=== PATIENT | female | born 1955 | race Caucasian/White ===

== ENCOUNTER 2018-08-01 09:46 | Emergency (ER) | payer OTHER ==
[~2018-08-01] VITALS: Ht 167.6 cm; Wt 87.5 kg
[2018-08-01 10:14] VITALS: BP 133/64
[2018-08-01] MEDS ORDERED: LEVO25TA4 PO (10:59)
[2018-08-01] MEDS ORDERED: LISI2.5T PO (11:00)
[2018-08-01] MEDS ORDERED: ATOR-2 PO (11:00)
== END 2018-08-01 11:26 | disposition home or self-care (01) ==
LOC: ED 10:50
DX: S49.91XA Unspecified injury of right shoulder and upper arm, initial encounter (principal); F17.200 Nicotine dependence, unspecified, uncomplicated; V49.59XA Passenger injured in collision with other motor vehicles in traffic accident, initial encounter; Y93.89 Activity, other specified; Y92.410 Unspecified street and highway as the place of occurrence of the external cause; Y99.8 Other external cause status
CPT/HCPCS: 29105; 99283

== ENCOUNTER 2018-09-07 06:30 | Day surgery (SDC) | payer OTHER ==
[~2018-09-07] VITALS: Ht 165.1 cm; Wt 83.0 kg
[~2018-09-07 06:30] MED LIST: ATOR-2 PO; LEVO25TA4 PO; LISI2.5T PO
[2018-09-07 06:58] VITALS: BP 166/98
[2018-09-07] MEDS ORDERED: LACTATED RINGERS 1,000 ML IV SCH (07:01)
[2018-09-07] MEDS ORDERED: ACETAMINOPHEN 500 MG TABLET PO ONE (07:30)
[2018-09-07] MEDS ORDERED: ONDANSETRON ODT 8 MG PO ONE (07:30)
[2018-09-07] MEDS ORDERED: GABAPENTIN 300 MG CAPSULE PO ONE (07:30)
[2018-09-07] MEDS ORDERED: MIDAZOLAM 1 MG/ML, 2ML ONE (07:31)
[2018-09-07] MEDS ORDERED: FENTANYL PF 100 MCG/2ML ONE (07:31)
[2018-09-07] MEDS ORDERED: ATOR40TA78 PO (07:41)
[2018-09-07] MEDS ORDERED: LEVO137T3 PO (07:41)
[2018-09-07] MEDS ORDERED: LISI1TAB3 PO (07:41)
[2018-09-07] MEDS ORDERED: NAPR500T8 PO (07:41)
[2018-09-07 08:07] LABS: ANION GAP 9 mmol/L (5-15); CHLORIDE 105 mmol/L (98-107)
[2018-09-07 08:10] LABS: ALANINE AMINOTRANSFERASE 41 U/L (12-78); ALKALINE PHOSPHATASE 128 U/L (45-117); BILIRUBIN,TOTAL 0.5 mg/dL (0.2-1.0); CREATININE 0.72 mg/dL (0.55-1.02); TOTAL PROTEIN 7.8 g/dL (6.4-8.2)
[2018-09-07] MEDS ORDERED: SUCCINYLCHOLINE 20 MG/ML, 10ML ONE (08:30)
[2018-09-07] MEDS ORDERED: PHENYLEPHRINE 10 MG/ML ONE (08:30)
[2018-09-07] MEDS ORDERED: GLYCOPYRROLATE 0.2MG/1ML, 5ML ONE (08:30)
[2018-09-07] MEDS ORDERED: ROCURONIUM 10 MG/ML,10ML ONE (08:30)
[2018-09-07] MEDS ORDERED: CEFAZOLIN 1,000 MG ONE (09:57)
[2018-09-07] MEDS ORDERED: BUPIVACAINE/PF 0.25% ONE (09:57)
[2018-09-07] MEDS ORDERED: LIDOCAINE-MPF 2% ,5ML ONE ×2 (09:57)
[2018-09-07] MEDS ORDERED: DEXAMETHASONE 4 MG/ML, 1ML ONE (09:57)
[2018-09-07] MEDS ORDERED: PROPOFOL 10 MG/ML, 20ML ONE (09:57)
[2018-09-07] MEDS ORDERED: ONDANSETRON 2MG/ML, 2ML IV PRN (10:30)
[2018-09-07] MEDS ORDERED: FENTANYL PF 100 MCG/2ML IV PRN (10:30)
[2018-09-07] MEDS ORDERED: SCOPOLAMINE PATCH, 1.5MG PATCH.TD72 TD PRN (10:30)
[2018-09-07] MEDS ORDERED: OXYcodone 5 MG/5 ML ORAL.SOL UDC PO PRN (10:30)
[2018-09-07] MEDS ORDERED: HYDROmorphone 2 MG/ML, 1ML IVPush PRN (10:30)
[2018-09-07] MEDS ORDERED: ALBUTEROL/IPRATROPIUM 2.5MG/0.5MG, 3 ML NPPB PRN (10:30)
[2018-09-07] MEDS ORDERED: PROMETHAZINE 25 MG/ML, 1ML IV PRN (10:30)
[2018-09-07] MEDS ORDERED: MIDAZOLAM 1 MG/ML, 2ML IV PRN (10:30)
[2018-09-07] MEDS ORDERED: hydrALAzine 20 MG/ML, 1ML IV PRN (10:30)
[2018-09-07] MEDS ORDERED: MEPERIDINE/PF 25MG/0.5ML IVPush PRN (10:30)
== END 2018-09-07 16:10 | disposition home or self-care (01) ==
LOC: OUT 06:30
PROVIDERS: ATTEND Orthopaedic Surgery
DX: S42.351A Displaced comminuted fracture of shaft of humerus, right arm, initial encounter for closed fracture (principal); I10 Essential (primary) hypertension; E78.5 Hyperlipidemia, unspecified; W18.39XA Other fall on same level, initial encounter; Y93.89 Activity, other specified; Y92.89 Other specified places as the place of occurrence of the external cause; Y99.8 Other external cause status; Z88.0 Allergy status to penicillin; Z88.8 Allergy status to other drugs, medicaments and biological substances
CPT/HCPCS: 24515; 36415; 64415; 73060; 76000; 80053; 93005; C1713; J0330; J0690; J1100; J2250; J2370; J2704; J3010; J3490; J7120; Q0162

== ENCOUNTER 2021-03-20 15:17 | Inpatient (IN) | payer MEDICARE, OTHER ==
[~2021-03-20] VITALS: Ht 167.6 cm; Wt 91.6 kg
[~2021-03-20 15:17] MED LIST changes: +ATOR40TA78 PO; +LEVO137T3 PO; +LISI1TAB23 PO; +NAPR500T8 PO
[2021-03-20] MEDS ORDERED: MORPHINE SULFATE 4 MG/ML, 1ML IVPush PRN (15:30)
[2021-03-20] MEDS ORDERED: PLEASE ENTER HEIGHT AND WEIGHT MC SCH (15:30)
[2021-03-20] MEDS ORDERED: ONDANSETRON 2MG/ML, 2ML IVPush ONE (15:30)
[2021-03-20] MEDS ORDERED: MORPHINE SULFATE 4 MG/ML, 1ML ONE (17:18)
[2021-03-20] MEDS ORDERED: ONDANSETRON 2MG/ML, 2ML ONE (17:18)
[2021-03-20] MEDS ORDERED: PROPOFOL 10 MG/ML, 20ML IVPush ONE (18:00)
[2021-03-20] MEDS ORDERED: PROPOFOL 10 MG/ML, 20ML ONE (18:00)
--- NOTE | 2021-03-20 18:04 | NUR ---
Set up for procedural sedation, end tidal, monitor, resuc equipment and suction ready at bedside. Propofol pulled 400mg, for ERP admin. Splint cart to room.
--- NOTE | 2021-03-20 18:17 | NUR ---
SEE PAPER CHART FOR CONSCIOUS SEDATION CHARTING
--- NOTE | 2021-03-20 18:25 | NUR ---
PROCEDURE COMPLETE AT 8204
--- NOTE | 2021-03-20 18:40 | NUR ---
80mg propofol wasted with YAMILEX fernández. x1 unopened bottle of propofol returne
--- NOTE | 2021-03-20 18:59 | NUR ---
RECIEVED REPORT FROM YAMILEX LEE
[2021-03-20] MEDS ORDERED: hydrALAzine 20 MG/ML, 1ML IVPush PRN (19:00)
[2021-03-20] MEDS ORDERED: LABETALOL 5MG/ML, 20ML IVPush PRN (19:00)
[2021-03-20] MEDS ORDERED: morphine SULFATE 10 MG/ML, 1ML IVPush PRN (19:00)
--- NOTE | 2021-03-20 19:18 | NUR ---
REPORT GIVEN TO BILL KAMINSKI. SUSAN READY TO GO TO ROOM 443.
[2021-03-20] MEDS: KETOROLAC 30 MG/1 ML IV PRN (20:10)
[2021-03-20] MEDS: ATORVASTATIN 40 MG TABLET PO SCH (20:10)
[2021-03-20] MEDS: ACETAMINOPHEN 500 MG TABLET PO SCH (20:10)
[2021-03-20 20:36] VITALS: BP 155/85
[2021-03-20] MEDS: LACTATED RINGERS 1,000 ML IV SCH (22:01)
[2021-03-21 01:34] VITALS: BP 138/65
[2021-03-21] MEDS: KETOROLAC 30 MG/1 ML IV PRN ×2 (01:40→10:32)
[2021-03-21] MEDS: LACTATED RINGERS 1,000 ML IV SCH ×2 (03:00→18:09)
[2021-03-21 05:20] LABS: BASOPHILS % (AUTO) 1 % (0-1); EOSINOPHILS % (AUTO) 2 % (1-7); LYMPHOCYTES % (AUTO) 21 % (22-44); MEAN CORPUSCULAR HEMOGLOBIN 29.6 pg (27.0-34.8); MEAN CORPUSCULAR HGB CONC 34.4 g/dL (32.4-35.8); MEAN PLATELET VOLUME 8.3 fL (7.4-10.4); MONOCYTES % (AUTO) 7 % (2-9); NEUTROPHILS % (AUTO) 68 % (42-75); PLATELET COUNT 215 x10^3/uL (130-400); RED BLOOD COUNT 5.15 x10^6/uL (3.82-5.3); RED CELL DISTRIBUTION WIDTH 13.4 % (9.6-15.2)
[2021-03-21 05:26] LABS: ANION GAP 5 mmol/L (5-15); CALCIUM 7.4 mg/dL (8.5-10.1); CHLORIDE 103 mmol/L (98-107); CREATININE 0.62 mg/dL (0.55-1.02)
[2021-03-21] MEDS: LEVOTHYROXINE 137 MCG TABLET PO SCH (06:02)
[2021-03-21 06:55] VITALS: BP 142/72
[2021-03-21] MEDS: ACETAMINOPHEN 500 MG TABLET PO SCH ×3 (06:58→20:21)
[2021-03-21] MEDS: NICOTINE 7 MG/24 HR PATCH.TD24 TD SCH (09:11)
[2021-03-21] MEDS ORDERED: EPINEPHRINE 1 MG/ML, 1ML ONE (10:49)
[2021-03-21] MEDS ORDERED: BUPIVACAINE/PF 0.5% ONE (10:49)
[2021-03-21] MEDS ORDERED: MIDAZOLAM 1 MG/ML, 2ML ONE (10:51)
[2021-03-21] MEDS ORDERED: PROPOFOL 50 ML ONE ×2 (10:51→12:34)
[2021-03-21] MEDS ORDERED: FENTANYL PF 250 MCG/5ML ONE (10:51)
[2021-03-21] MEDS ORDERED: LABETALOL 5MG/ML, 20ML IV PRN (12:00)
[2021-03-21] MEDS ORDERED: morphine SULFATE 10 MG/ML, 1ML IVPush PRN (12:00)
[2021-03-21] MEDS ORDERED: FENTANYL PF 100 MCG/2ML IV PRN (12:00)
[2021-03-21] MEDS ORDERED: MEPERIDINE/PF 25MG/0.5ML IVPush PRN (12:00)
[2021-03-21] MEDS ORDERED: ONDANSETRON 2MG/ML, 2ML IVPush PRN (12:00)
[2021-03-21] MEDS ORDERED: DIPHENHYDRAMINE 50 MG/ML, 1ML IVPush PRN (12:00)
[2021-03-21] MEDS ORDERED: PROMETHAZINE 25 MG/ML, 1ML IVPush PRN (12:00)
[2021-03-21] MEDS ORDERED: OXYcodone 5 MG/5 ML ORAL.SOL UDC PO PRN (12:00)
[2021-03-21] MEDS ORDERED: DIAZEPAM 5 MG/ML, 2ML IVPush PRN (12:00)
[2021-03-21] MEDS ORDERED: ACETAMINOPHEN 325 MG TABLET PO PRN (12:00)
[2021-03-21] MEDS ORDERED: EPHEDRINE 50 MG/ML, 1ML IVPush PRN (12:00)
[2021-03-21] MEDS ORDERED: EPHEDRINE 50 MG/ML, 1ML IM PRN (12:00)
[2021-03-21] MEDS ORDERED: BUPIVACAINE/PF-EPI 0.5% 1:200K IM ONE (12:28)
[2021-03-21] MEDS ORDERED: SUCCINYLCHOLINE 20 MG/ML, 10ML ONE (12:34)
[2021-03-21] MEDS ORDERED: DEXAMETHASONE 4 MG/ML, 1ML ONE (12:34)
[2021-03-21] MEDS ORDERED: ONDANSETRON 2MG/ML, 2ML ONE (12:34)
[2021-03-21] MEDS ORDERED: ACETAMINOPHEN 650 MG/20.3 ML UDC ONE (13:42)
[2021-03-21] MEDS ORDERED: FENTANYL PF 100 MCG/2ML ONE (13:42)
[2021-03-21] MEDS ORDERED: OXYcodone 5 MG/5 ML ORAL.SOL UDC ONE (13:42)
[2021-03-21] MEDS ORDERED: MEPERIDINE/PF 25MG/ML,1ML ONE (14:17)
[2021-03-21] MEDS ORDERED: CEFAZOLIN PMX 2GM/50ML 50 ML IVPB SCH (14:30)
[2021-03-21 15:00] VITALS: BP 149/71
[2021-03-21 15:47] VITALS: BP 149/71
[2021-03-21 19:42] VITALS: BP 149/76
[2021-03-21] MEDS: ATORVASTATIN 40 MG TABLET PO SCH (20:21)
[2021-03-22 00:47] VITALS: BP 157/73
[2021-03-22] MEDS: KETOROLAC 30 MG/1 ML IV PRN (01:07)
[2021-03-22] MEDS: LACTATED RINGERS 1,000 ML IV SCH (02:21)
[2021-03-22 04:14] VITALS: BP 148/78
[2021-03-22] MEDS: LEVOTHYROXINE 137 MCG TABLET PO SCH (05:27)
[2021-03-22 05:50] LABS: BASOPHILS % (AUTO) 0 % (0-1); EOSINOPHILS % (AUTO) 0 % (1-7); LYMPHOCYTES % (AUTO) 11 % (22-44); MEAN CORPUSCULAR HEMOGLOBIN 29.3 pg (27.0-34.8); MEAN CORPUSCULAR HGB CONC 33.7 g/dL (32.4-35.8); MEAN PLATELET VOLUME 8.5 fL (7.4-10.4); MONOCYTES % (AUTO) 8 % (2-9); NEUTROPHILS % (AUTO) 81 % (42-75); PLATELET COUNT 204 x10^3/uL (130-400); RED BLOOD COUNT 4.73 x10^6/uL (3.82-5.3); RED CELL DISTRIBUTION WIDTH 13.1 % (9.6-15.2)
[2021-03-22 05:53] LABS: ANION GAP 6 mmol/L (5-15); CALCIUM 7.5 mg/dL (8.5-10.1); CHLORIDE 104 mmol/L (98-107); CREATININE 0.63 mg/dL (0.55-1.02)
[2021-03-22 08:00] VITALS: BP 169/75
[2021-03-22] MEDS: ASPIRIN 81 MG TABLET EC PO SCH (09:30)
[2021-03-22] MEDS ORDERED: KETOROLAC 15 MG/1ML IM PRN (09:30)
[2021-03-22] MEDS: LISINOPRIL 10 MG TABLET PO SCH (09:43)
[2021-03-22] MEDS: DOCUSATE 100 MG CAPSULE PO SCH ×2 (09:43→20:19)
[2021-03-22] MEDS: HYDROCHLOROTHIAZIDE 12.5 MG CAPSULE PO SCH (09:43)
[2021-03-22] MEDS: NICOTINE 7 MG/24 HR PATCH.TD24 TD SCH (09:43)
[2021-03-22] MEDS: POLYETHYLENE GLYCOL 17 GM PACKET PO SCH (09:43)
[2021-03-22] MEDS ORDERED: OXYcodone/APAP 5/325MG TABLET ONE (10:21)
[2021-03-22] MEDS: OXYcodone/APAP 5/325MG TABLET PO PRN ×2 (10:23→16:39)
[2021-03-22] MEDS ORDERED: KETOROLAC 30 MG/1 ML IM PRN (11:30)
[2021-03-22 14:08] VITALS: BP 158/80
[2021-03-22] MEDS ORDERED: VANCOMYCIN PMX 1GM/200ML 200 ML IV ONE (19:00)
[2021-03-22] MEDS: ATORVASTATIN 40 MG TABLET PO SCH (20:19)
[2021-03-22 20:26] VITALS: BP 145/68
[2021-03-22] MEDS ORDERED: GABAPENTIN 300 MG CAPSULE PO SCH (21:00)
[2021-03-23 00:55] VITALS: BP 156/78
[2021-03-23 05:20] LABS: BASOPHILS % (AUTO) 1 % (0-1); EOSINOPHILS % (AUTO) 2 % (1-7); LYMPHOCYTES % (AUTO) 27 % (22-44); MEAN CORPUSCULAR HEMOGLOBIN 29.7 pg (27.0-34.8); MEAN CORPUSCULAR HGB CONC 34.5 g/dL (32.4-35.8); MONOCYTES % (AUTO) 9 % (2-9); NEUTROPHILS % (AUTO) 62 % (42-75); PLATELET COUNT 221 x10^3/uL (130-400); RED CELL DISTRIBUTION WIDTH 13.1 % (9.6-15.2)
[2021-03-23 05:31] LABS: CALCIUM 7.3 mg/dL (8.5-10.1); CHLORIDE 105 mmol/L (98-107); CREATININE 0.59 mg/dL (0.55-1.02)
[2021-03-23] MEDS: LEVOTHYROXINE 137 MCG TABLET PO SCH (05:46)
[2021-03-23] MEDS: ASPIRIN 81 MG TABLET EC PO SCH (05:47)
[2021-03-23 05:48] LABS: ANION GAP 4 mmol/L (5-15)
[2021-03-23 07:35] VITALS: BP 165/77
[2021-03-23] MEDS: DOCUSATE 100 MG CAPSULE PO SCH (08:25)
[2021-03-23] MEDS: HYDROCHLOROTHIAZIDE 12.5 MG CAPSULE PO SCH (08:26)
[2021-03-23] MEDS: NICOTINE 7 MG/24 HR PATCH.TD24 TD SCH (08:26)
[2021-03-23] MEDS: LISINOPRIL 10 MG TABLET PO SCH (08:26)
[2021-03-23] MEDS: POLYETHYLENE GLYCOL 17 GM PACKET PO SCH (08:27)
[2021-03-23] MEDS: OXYcodone/APAP 5/325MG TABLET PO PRN ×3 (08:27→16:01)
[2021-03-23] MEDS ORDERED: FUROSEMIDE 40 MG/4 ML IV SCH (09:00)
[2021-03-23 13:09] VITALS: BP 134/66
[2021-03-23] MEDS ORDERED: NICO-486 TD (15:29)
[2021-03-23] MEDS ORDERED: POLY17PO5 PO (15:29)
[2021-03-23] MEDS ORDERED: ONDA4TAB7 PO (15:29)
[2021-03-23] MEDS ORDERED: OXYC1TAB14 PO ×3 (15:29→20:35)
[2021-03-23 15:51] VITALS: BP 134/63
== END 2021-03-23 19:11 | disposition home or self-care (01) | DRG 492 ==
LOC: ED 16:01 → EDIP 18:27 → 4NW 19:57 → 4NE 03-21 13:30
PROVIDERS: ADMIT Student in an Organized Health Care Education/Training Program; ATTEND Internal Medicine
PROC: 0QSG04Z Reposition Right Tibia with Internal Fixation Device, Open Approach (ICD-10-PCS; 2021-03-21)
PROC: 5A0935A Assistance with Respiratory Ventilation, Less than 24 Consecutive Hours, High Flow/Velocity Cannula (ICD-10-PCS; 2021-03-21)
PROC: 0QSJ04Z Reposition Right Fibula with Internal Fixation Device, Open Approach (ICD-10-PCS; principal; 2021-03-21 10:30)
DX: S82.301A Unspecified fracture of lower end of right tibia, initial encounter for closed fracture (principal); J96.21 Acute and chronic respiratory failure with hypoxia; J98.11 Atelectasis; D72.829 Elevated white blood cell count, unspecified; E03.9 Hypothyroidism, unspecified; I10 Essential (primary) hypertension; J44.9 Chronic obstructive pulmonary disease, unspecified; K59.00 Constipation, unspecified; S82.831A Other fracture of upper and lower end of right fibula, initial encounter for closed fracture; Z20.822 Contact with and (suspected) exposure to COVID-19; F17.210 Nicotine dependence, cigarettes, uncomplicated; S93.06XA Dislocation of unspecified ankle joint, initial encounter; R56.9 Unspecified convulsions; W18.39XA Other fall on same level, initial encounter; Y93.89 Activity, other specified; Y92.89 Other specified places as the place of occurrence of the external cause; Y99.8 Other external cause status
CPT/HCPCS: 27788; 36415; 36600; 71045; 76000; 80048; 82803; 83880; 85025; 87635; 93005; 96374; 99152; C1713; G0378; J0171; J1100; J1885; J1940; J2175; J2250; J2405; J2704; J3010; J3370; J0330; J2270; J7120